=== PATIENT | female | born 1960 | race Caucasian/White ===

== ENCOUNTER 2019-07-31 08:33 | Emergency (ER) | payer MEDICARE ==
[~2019-07-31] VITALS: Ht 162.6 cm; Wt 90.9 kg
[2019-07-31] MEDS ORDERED: ondansetron/PF 4mg/2ml inj IV ONE (08:40)
[2019-07-31] MEDS ORDERED: normal saline 1000ML IV soln IVB ONE (08:40)
[2019-07-31] MEDS ORDERED: HYDROcodone/acetaminophen 5mg/325mg tablet PO ONE (08:40)
[2019-07-31] MEDS ORDERED: morphine 4 MG/ML inj SYRINge IV PRN (08:40)
[2019-07-31] MEDS ORDERED: ondansetron 4mg rapidly disintigrating tab PO ONE (09:00)
[2019-07-31 09:07] VITALS: BP 161/90
[2019-07-31] MEDS ORDERED: HYDR-4383 PO (09:13)
[2019-07-31] MEDS ORDERED: ONDA4TAB6 PO (09:13)
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
== END 2019-07-31 09:58 | disposition home or self-care (01) ==
LOC: ER 08:34
DX: S82.852A Displaced trimalleolar fracture of left lower leg, initial encounter for closed fracture (principal); Z79.899 Other long term (current) drug therapy; W00.0XXA Fall on same level due to ice and snow, initial encounter; Y93.89 Activity, other specified; Y92.89 Other specified places as the place of occurrence of the external cause; Y99.8 Other external cause status
CPT/HCPCS: 29515; 73610; 99284